=== PATIENT | female | born 1955 | race Caucasian/White ===

== ENCOUNTER 2021-11-01 10:20 | Emergency (ER) | payer MEDICARE, SELFPAY ==
[2021-11-01 10:28] VITALS: BP 129/72; PULSE 87; RESP 14; TEMP 36.1; O2SAT 98
[2021-11-01 10:37] VITALS: BP 129/72; PULSE 87; RESP 14; TEMP 36.1; O2SAT 98
--- NOTE | 2021-11-01 10:37 | ED.URI ---
HPI - URI/Sore Throat General Chief Complaint: Upper Respiratory Infection Stated Complaint: cough sneeze Time Seen by Provider: 11/01/21 10:37 Source: patient and family Mode of arrival: ambulatory Limitations: no limitations History of Present Illness HPI Narrative: Patient presents with nasal congestion sneezing and occasional cough. Patient states she started on Claritin and it increased her postnasal drainage. No shortness of breath no chest pain. MD elicited complaint: cough and nasal congestion Description of mucous: clear Able to tolerate fluids by mouth: Yes Related Data Home Medications Medication Instructions Recorded Confirmed diclofenac sodium 75 mg PO DAILY 11/01/21 11/01/21 levothyroxine 75 mcg PO DAILY 11/01/21 11/01/21 lovastatin 40 mg PO DAILY 11/01/21 11/01/21 metformin 500 mg PO BID 11/01/21 11/01/21 sertraline 50 mg PO DAILY 11/01/21 11/01/21 tramadol 50 mg PO Q6H PRN 11/01/21 11/01/21 Allergies Allergy/AdvReac Type Severity Reaction Status Date / Time No Known Allergies Allergy Verified 11/01/21 10:35 Review of Systems Review of Systems: CONSTITUTIONAL: Denies chills, or sweats. Reports fever and generalized body aches EYES: Denies visual changes, redness, or discharge. ENT: Denies otalgia. Reports nasal congestion runny nose and sore throat CARDIOVASCULAR: Denies chest pain, palpitations, or edema. RESPIRATORY: Denies dyspnea. Reports occasional cough GASTROINTESTINAL: Denies abdominal pain, nausea, vomiting, or diarrhea. GENITOURINARY: Denies dysuria or hematuria. SKIN: Denies rash or itching. MUSCULOSKELETAL: Denies back pain, joint pain, or myalgia. Reports generalized body aches NEUROLOGIC: Denies headache, numbness, or weakness. PSYCHIATRIC: Denies anxiety or depression. PMF Comments At time of signature, agree with nursing past medical, surgical, social and family history. There is no relevant family history pertinent to the presenting complaint Exam Narrative: The patient is a well-developed, well-nourished in no acute distress. SKIN: Skin is warm and dry without erythema, swelling or exudate. There is good turgor. No tenting. HEAD: Atraumatic. Normocephalic. No temporal or scalp tenderness. EYES: Moist and bright. Sclera and conjunctivae normal. No discharge. PERRLA. Extraocular motions intact. Gross visual acuity intact. EARS: Pinna is normal shape and contour. Clear external auditory canals. TM pearly cook with good cone of light, no erythema or suppuration. Bilateral cerumen noted no gross hearing deficit. NOSE: pink, moist mucosa with good air movement. Clear rhinorrhea without nasal flaring. Septum midline. Mouth: moist mucous membranes. THROAT; mild erythema noted to posterior oropharynx with moderate postnasal drainage. Without exudate or ulceration.. Uvula midline. Normal movement of soft palate. NECK: Supple and nontender with full range of motion without discomfort. No meningeal signs. LUNGS: Equal and bilateral breath sounds without wheezes, rales or rhonchi. CHEST: The chest wall is without retractions or use of accessory muscles. HEART: Has a regular rate and rhythm without murmur, gallops, click or rub. ABDOMEN: Soft, nontender with positive active bowel sounds. No rebound tenderness. EXTREMITIES: Without cyanosis, clubbing or edema. Equal 2+ distal pulses and 2 second capillary refill noted. NEUROLOGIC: alert, active, . The patient moves all extremities with normal muscle strength. Normal muscle tone is noted. Normal coordination is noted. NO focal neurological findings noted. Course Course Level of Care: Express Care Visit Vital Signs Vital signs: Vital Signs Temperature 36.1 C L 11/01/21 10:28 Pulse Rate 87 11/01/21 10:28 Respiratory Rate 14 11/01/21 10:28 Blood Pressure 129/72 11/01/21 10:28 Pulse Oximetry 98 11/01/21 10:28 Temperature 36.1 C L 11/01/21 10:28 Pulse Rate 87 11/01/21 10:28 Respiratory Rate 14 11/01/21 10:28 Blood
[2021-11-03 14:39] LABS: SARS-CoV-2 RNA PCR Negative
== END 2021-11-01 11:04 | disposition home or self-care (01) ==
PROVIDERS: Emergency Provider Nurse Practitioner Family; PCP Internal Medicine
DX: J06.9 Acute upper respiratory infection, unspecified (principal); Z20.822 Contact with and (suspected) exposure to COVID-19; E78.00 Pure hypercholesterolemia, unspecified; M19.90 Unspecified osteoarthritis, unspecified site; E11.9 Type 2 diabetes mellitus without complications; E03.9 Hypothyroidism, unspecified
CPT/HCPCS: 99203; C9803; G0463; U0003; U0005

== ENCOUNTER 2022-02-03 11:06 | Emergency (ER) | payer MEDICARE, SELFPAY ==
--- NOTE | 2022-02-03 11:18 | ED.SKABFB ---
HPI - Skin/Abscess/Foreign Bdy General Chief complaint: Skin/Abscess/Foreign Body Stated complaint: Cyst under arm Time Seen by Provider: 02/03/22 11:26 Source: patient Mode of arrival: ambulatory Limitations: no limitations History of Present Illness HPI narrative: 66-year-old female presented for complaint of right underarm abscess. She endorses pain started yesterday and has worsened over the last 2 days. She reports a history of abscess to the axilla about 3 years ago that had to be drained as well. She denies nausea, vomiting, fever or chills.NKDA. She took tylenol [employer]. complaint: rash Related Data Home Medications Medication Instructions Recorded Confirmed diclofenac sodium 75 mg PO DAILY 11/01/21 11/01/21 levothyroxine 75 mcg PO DAILY 11/01/21 11/01/21 lovastatin 40 mg PO DAILY 11/01/21 11/01/21 metformin 500 mg PO BID 11/01/21 11/01/21 sertraline 50 mg PO DAILY 11/01/21 11/01/21 tramadol 50 mg PO Q6H PRN 11/01/21 11/01/21 Allergies Allergy/AdvReac Type Severity Reaction Status Date / Time No Known Allergies Allergy Verified 11/01/21 10:35 Review of Systems Review of Systems: CONSTITUTIONAL: Denies body aches, fever, chills, or sweats. EYES: Denies visual changes, redness, or discharge. ENT: Denies rhinorrhea, congestion, sore throat, or otalgia. CARDIOVASCULAR: Denies chest pain, palpitations, or edema. RESPIRATORY: Denies cough or dyspnea. GASTROINTESTINAL: Denies abdominal pain, nausea, vomiting, or diarrhea. GENITOURINARY: Denies dysuria or hematuria. SKIN: right under arm abscess MUSCULOSKELETAL: Denies back pain, joint pain, or myalgia. NEUROLOGIC: Denies headache, numbness, tingling, or weakness. PSYCH: Denies depression or anxiety. PMFSH Comments At time of signature, I have reviewed and agree with nursing past medical, surgical, social and family history unless otherwise noted. Please see nursing chart for further information. There is no relevant family history pertinent to the presenting complaint Exam Narrative: GENERAL: Well-appearing, well-nourished, and in no acute distress. HEAD: Normocephalic, atraumatic. EYES: conjunctivae clear, and EOMI. ENT: Mucous membranes moist. Oropharynx without edema, erythema or lesions. NECK: Supple. No lymphadenopathy CHEST: Clear to auscultation. No respiratory distress. HEART: Regular rate and rhythm. SKIN: Warm, dry. abscess to right axilla with fluctuant area approx 1cm diameter with surrounding induration of approx 4cm. Tender with minimal palpation. No streaking or active drainage. NEURO: Alert and oriented x3. PSYCH: Normal mood and affect Course Course Emergency Course: Patient is aware of diagnosis, understands and agrees to treatment plan. Anticipatory guidance given. Patient agrees to follow-up as directed and is aware of reasons to seek care at the emergency department. Portions of this record may have been created with voice recognition software Level of Care: Express Care Visit Vital Signs Vital signs: Vital Signs Temperature 98.2 F 02/03/22 11:19 Pulse Rate 71 02/03/22 11:19 Respiratory Rate 16 02/03/22 11:19 Blood Pressure 146/69 H 02/03/22 11:19 Pulse Oximetry 100 02/03/22 11:19 Temperature 98.2 F 02/03/22 11:19 Pulse Rate 71 02/03/22 11:19 Respiratory Rate 16 02/03/22 11:19 Blood Pressure 146/69 H 02/03/22 11:19 Pulse Oximetry 100 02/03/22 11:19 Reviewed Procedures Abscess I/D upper extremity: Date of Incision: 02/03/22 Side (if applicable): right Local Anesthetic: lidocaine 1% and with epi Amount of anesthesia used (mL): 2 Technique: incised with #11 blade Irrigation: Yes Packing used?: plain I&D Results: Pus Abcess I&D Additional Comments: Incision made to center of area of fluctuance. Moderate amount of thick purulent discharge expelled. Wound irrigated and probed for loculations. Pt tolerated the procedure well. Jacey
[2022-02-03 11:19] VITALS: BP 146/69; PULSE 71; RESP 16; TEMP 36.8; O2SAT 100
== END 2022-02-03 12:19 | disposition home or self-care (01) ==
PROVIDERS: Emergency Provider Nurse Practitioner Family
DX: L02.411 Cutaneous abscess of right axilla (principal); E78.00 Pure hypercholesterolemia, unspecified; M19.90 Unspecified osteoarthritis, unspecified site; E11.9 Type 2 diabetes mellitus without complications; E03.9 Hypothyroidism, unspecified
CPT/HCPCS: 10061; 87070; 87075; 87076; 87205; 99213; G0463

== ENCOUNTER 2024-09-02 14:33 | Emergency (ER) | payer MEDICARE, SELFPAY ==
[2024-09-02 14:40] VITALS: BP 152/81; PULSE 63; RESP 16; TEMP 36.8; O2SAT 100
--- NOTE | 2024-09-02 14:47 | ED.URI ---
HPI - URI/Sore Throat General Chief Complaint: Upper Respiratory Infection Stated Complaint: poss sinus infection Time Seen by Provider: 09/02/24 14:55 Source: patient and RN notes reviewed Mode of arrival: ambulatory Limitations: no limitations History of Present Illness HPI Narrative: 69-year-old female presents with concern for 3 day history of sinus congestion, head congestion sinus pain, cough, hoarse voice, ear pressure. She reports she has had some sputum with blood tinge in her nose. She denies fever, body aches, chills, sweats. MD elicited complaint: rhinorrhea and nasal congestion Related Data Home Medications Medication Instructions Recorded Confirmed levothyroxine 75 mcg tablet 75 mcg PO DAILY 11/01/21 09/02/24 lovastatin 40 mg tablet 40 mg PO DAILY 11/01/21 09/02/24 sertraline 50 mg tablet 50 mg PO DAILY 11/01/21 09/02/24 multivitamin 1 tablet PO DAILY 09/02/24 09/02/24 Allergies Allergy/AdvReac Type Severity Reaction Status Date / Time No Known Allergies Allergy Verified 09/02/24 14:39 Review of Systems Review of Systems: CONSTITUTIONAL: Denies malaise, chills, sweats, or fever. EYES: Denies visual changes, redness, or discharge. ENT: Reports rhinorrhea, congestion, sinus pain, otalgia CARDIOVASCULAR: Denies chest pain, palpitations, or edema. RESPIRATORY: Denies cough. Denies dyspnea. GASTROINTESTINAL: Denies abdominal pain, nausea, vomiting, diarrhea SKIN: Denies rash or itching. MUSCULOSKELETAL: Denies myalgia. NEUROLOGIC: Reports headache. All systems reviewed & are unremarkable except as noted in HPI and below PMFSH Comments At time of signature, agree with nursing past medical, surgical, social and family history. There is no relevant family history pertinent to the presenting complaint Exam Narrative: GENERAL: Well-appearing, well-nourished, and in no acute distress. HEAD: Normocephalic EYES: PERRLA, conjunctivae clear ENT: Nares clear, turbinates edematous and erythematous, clear discharge. Mucous membranes moist. TM pearly villegas with dull light reflex bilaterally; no tragal tenderness. Oropharynx not erythematous without lesions. Tonsils not enlarged and without exudate, no drooling, no hoarseness, no trismus, uvula midline. NECK: Supple. No lymphadenopathy CHEST: Clear to auscultation, breath sounds equal. No wheezing, rhonchi, rales, or stridor. No respiratory distress, speaks in full sentences. HEART: Regular rate and rhythm. No murmur heard. SKIN: Warm, dry, no rash. NEURO: Alert and oriented x3. PSYCH: Normal mood and affect Course Course Emergency Course: Patient is aware of diagnosis, understands and agrees to treatment plan. Anticipatory guidance given. Patient agrees to follow-up as directed and is aware of reasons to seek care at the emergency department. Portions of this record may have been created with voice recognition software Level of Care: Express Care Visit Vital Signs Vital signs: Vital Signs Temperature 98.2 F 09/02/24 14:40 Pulse Rate 63 09/02/24 14:40 Respiratory Rate 16 09/02/24 14:40 Blood Pressure 152/81 H 09/02/24 14:40 Pulse Oximetry 100 09/02/24 14:40 Oxygen Delivery Room Air 09/02/24 14:40 Temperature 98.2 F 09/02/24 14:40 Pulse Rate 63 09/02/24 14:40 Respiratory Rate 16 09/02/24 14:40 Blood Pressure 152/81 H 09/02/24 14:40 Pulse Oximetry 100 09/02/24 14:40 Oxygen Delivery Room Air 09/02/24 14:40 Reviewed. MDM - URI/Sore Throat MDM Narrative Medical decision making narrative: Differential diagnosis considered: Wilson virus, strep pharyngitis, allergic rhinitis, upper respiratory tract infection, sinusitis, rhinosinusitis, nasopharyngitis. viral pharyngitis, otitis media, otitis externa, pneumonia, bronchitis, viral cough syndrome, viral syndrome, and influenza. Exam findings show no acute concerns or changes; patient is non-toxic appearing and is in no distress. Patient is appropriate for outpatient treatment and follow-up. Lab Data Attestation: I reviewed the patient's lab results. Critical Care Time Critical Care Time Critical Care Time: No Discharge Plan Discharge Clinical Impression: Upper respiratory infection Patient Disposition: Home, Self-Care Condition: Stable Instructions: Upper Respiratory Infection (ED) Additional Instructions: Viral illness may last between 7-21 days; antibiotics do not cure viral illness and are NOT recommended at this time. Symptomatic treatment of a sinus infection aims to relieve symptoms. These treatments do not shorten the duration of illness. Nonprescription pain medications, such as acetaminophen (eg, Tylenol) or ibuprofen (eg, Motrin, Advil), are recommended for pain. Flushing the nose and sinuses with a saline solution several times per day has been proven to decrease pain associated with congestion and shorten the duration of symptoms. Nasal steroids (such as Flonase, 2 sprays in each nostril daily) can help to reduce swelling inside the nose, usually within two to three days. These drugs have few side effects and relieve symptoms in most people. Medications to thin secretions (such as guaifenesin) may help to clear mucus. Please follow-up with your primary care doctor in the next 1-2 days. If you cannot follow-up with your primary care doctor please go to the ED for any urgent issues. If you have any worsening of symptoms or any other concerns please go to the ED immediately. Prescriptions: New methylprednisolone [Medrol (Lucian)] 4 mg tablets,dose pack See Rx Instructions .ROUTE .COMPLEX Qty: 21 0RF Rx Instructions: orally per package directions No Action lovastatin 40 mg Tablet 40 mg PO DAILY levothyroxine 75 mcg Tablet 75 mcg PO DAILY sertraline 50 mg Tablet 50 mg PO DAILY multivitamin [Multi-Vitamin] Tablet 1 tablet PO DAILY Follow-up/Referrals: Tonio,William Gamboa MD [Primary Care Provider] - Time of Disposition: 15:03
== END 2024-09-02 15:05 | disposition home or self-care (01) ==
PROVIDERS: Emergency Provider Nurse Practitioner; PCP Family Medicine
DX: J06.9 Acute upper respiratory infection, unspecified (principal); E78.00 Pure hypercholesterolemia, unspecified; M19.90 Unspecified osteoarthritis, unspecified site; E11.9 Type 2 diabetes mellitus without complications; E03.9 Hypothyroidism, unspecified
CPT/HCPCS: 99213; G0463

== ENCOUNTER 2025-09-03 17:42 | Emergency (ER) | payer MEDICARE, SELFPAY ==
[2025-09-03 17:54] VITALS: BP 137/57; PULSE 63; RESP 16; TEMP 37; O2SAT 95
--- NOTE | 2025-09-03 17:57 | ED_ITS ---
HPI - Animal Bite General Chief Complaint: Animal Bite Stated Complaint: dog bite Time Seen by Provider: 09/03/25 17:57 Source: patient Mode of arrival: ambulatory Limitations: no limitations History of Present Illness HPI narrative: 70-year-old female presents with dog bite to right hand. Patient's dog bit her approximately 1 week ago. Dog up-to-date on vaccines. Patient states she was filling dog's water bowl and it bit her. Redness and swelling started 3-4 days ago. Afebrile. Range of motion and distal neurovascularly intact. All systems reviewed and negative except as noted above. Related Data Home Medications ?Medication ?Instructions ?Recorded ?Confirmed ?Last Taken ?Type levothyroxine 75 mcg tablet 75 mcg PO DAILY 11/01/21 1 11/02/23 Unknown History lovastatin 40 mg tablet 40 mg PO DAILY 11/01/2102/20 Unknown History multivitamin 1 tablet PO DAILY 09/02/24 1 11/02/23 Unknown History ketoconazole 2 % shampoo topical 09/03/25 Unknown Hi story sertraline 100 mg tablet mg 09/03/25 Unknown History Allergies Allergy/AdvReac Type Severity Reaction Status Date / Time No Known Allergies Allergy Verified 09/03/25 17:58 PMFSH Comments At time of signature, agree with nursing past medical, surgical, social and family history. There is no relevant family history pertinent to the presenting complaint. Exam Narrative: GENERAL: This is a well-nourished, well-developed patient, in no apparent distress. HEAD: normocephalic, atraumatic. EYES: PERRL. Sclera clear/white. Vision is grossly intact. EARS: External ears normal NOSE: External nose normal NECK: Neck supple, non-tender without lymphadenopathy, masses or thyromegaly. CARDIOVASCULAR: Regular rate and rhythm without murmurs, gallops, or rubs. RESPIRATORY: Clear to auscultation. Breath sounds equal bilaterally. No wheezes, rales, or rhonchi. SKIN: warm, Dry, intact with no suspicious lesions or rash, good texture and turgor. erythema and swelling to dorsal aspect R hand. approx. 7x14cm. two bite wounds noted. no drainage. NEURO: awake, alert, and oriented to person, place and time. There were no obvious focal neurologic abnormalities. EXTREMITIES: No joint tenderness, effusion, or edema noted. Course Course Level of Care: Express Care Visit Vital Signs Vital signs: Vital Signs Temperature 37.0 C 09/03/25 17:54 Pulse Rate 63 09/03/25 17:54 Respiratory Rate 16 09/03/25 17:54 Blood Pressure 137/57 L 09/03/25 17:54 Pulse Oximetry 95 09/03/25 17:54 Oxygen Delivery Room Air 09/03/25 17:54 Temperature 37.0 C 09/03/25 17:54 Pulse Rate 63 09/03/25 17:54 Respiratory Rate 16 09/03/25 17:54 Blood Pressure 137/57 L 09/03/25 17:54 Pulse Oximetry 95 09/03/25 17:54 Oxygen Delivery Room Air 09/03/25 17:54 Reviewed MDM - Animal Bite MDM Narrative Medical decision making narrative: will treat with Augmentin for dog bite infection. Range of motion and distal neurovascularly intact to right upper extremity. Recommend follow-up with primary care physician in 1 week. Patient is well-appearing, nontoxic. Differential Diagnosis Differential diagnosis: Likely bite by animal and dog bite Discharge Plan Discharge Clinical Impression: Dog bite of right hand with infection Qualifiers: Encounter type: initial encounter Qualified Code(s): S61.451A - Open bite of right hand, initial encounter Patient Disposition: Home Condition: Stable Instructions: Antibiotic Form, Animal Bite (ED) Additional Instructions: Take antibiotic as prescribed until gone. Take Tylenol every 6-8 hours as needed for pain. Follow-up with your primary care physician for wound check in 1 week. Patient Language: Korean Prescriptions: New amoxicillin-pot clavulanate 875-125 mg tablet 1 tablet PO Q12H 10 Days Qty: 20 0RF No Action lovastatin 40 mg Tablet 40 mg PO DAILY levothyroxine 75 mcg Tablet 75 mcg PO DAILY multivitamin [Multi-Vitamin] Tablet 1 tablet PO DAILY ketoconazole 2 % shampoo TOPICAL sertraline 100 mg tablet Follow-up/Referrals: UNKNOWN,DOCTOR [Primary Care Provider] Time of Disposition: 18:02
[2025-09-03] MEDS: TETANUS/DIPHTHERIA TOXOIDS ADSORB 0.5 ML SYRINGE (*BKC) IM (18:12)
== END 2025-09-03 18:20 | disposition home or self-care (01) ==
PROVIDERS: Emergency Provider Nurse Practitioner Family
DX: S61.451A Open bite of right hand, initial encounter (principal); W54.0XXA Bitten by dog, initial encounter; Z23 Encounter for immunization; E78.00 Pure hypercholesterolemia, unspecified; E11.9 Type 2 diabetes mellitus without complications; E03.9 Hypothyroidism, unspecified; M19.90 Unspecified osteoarthritis, unspecified site; F41.9 Anxiety disorder, unspecified
CPT/HCPCS: 90471; 90714; 99213; G0463